=== PATIENT | female | born 1930 ===

== ENCOUNTER 2021-09-17 17:35 | Emergency (ER) | payer SELFPAY ==
[~2021-09-17] VITALS: Ht 154.9 cm; Wt 77.3 kg
[2021-09-17 18:10] VITALS: BP 150/79
[2021-09-17] MEDS ORDERED: cephalexin 250mg capsule PO ONE (20:10)
== END 2021-09-17 20:49 | disposition home or self-care (01) ==
LOC: ER 17:36
DX: S00.83XA Contusion of other part of head, initial encounter (principal); L03.116 Cellulitis of left lower limb; I48.91 Unspecified atrial fibrillation; Z79.01 Long term (current) use of anticoagulants; X58.XXXA Exposure to other specified factors, initial encounter; Y93.89 Activity, other specified; Y92.89 Other specified places as the place of occurrence of the external cause; Y99.8 Other external cause status
CPT/HCPCS: 93971; 99284